=== PATIENT | male | born 1990 | race Caucasian/White ===

== ENCOUNTER 2017-01-30 03:34 | Emergency (ER) | payer OTHER ==
[2017-01-30 03:55] VITALS: BP 126/58; PULSE 99; RESP 18; TEMP 98.1
[2017-01-30] MEDS ORDERED: DIPH,PERTUS(ACELL)TETVAC-LF 0.5 ML VIAL IM ONE (04:07)
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
== END 2017-01-30 04:35 | disposition home or self-care (01) ==
LOC: EC 03:34
DX: S51.012A Laceration without foreign body of left elbow, initial encounter (principal); Z23 Encounter for immunization; W26.0XXA Contact with knife, initial encounter
CPT/HCPCS: 12002; 90471; 90715; 99283